=== PATIENT | female | born 1975 | race Two or more races ===

== ENCOUNTER 2022-11-19 08:12 | Emergency (ER) | payer OTHER ==
[~2022-11-19] VITALS: Ht 162.6 cm; Wt 68.5 kg
== END 2022-11-19 17:39 | disposition home or self-care (01) ==
LOC: ER 08:12
DX: R10.9 Unspecified abdominal pain (principal); K57.32 Diverticulitis of large intestine without perforation or abscess without bleeding; Z20.822 Contact with and (suspected) exposure to COVID-19